=== PATIENT | male | born 1990 | race Two or more races ===

== ENCOUNTER 2022-03-25 14:57 | Emergency (ER) | payer MEDICAID, OTHER ==
[~2022-03-25] VITALS: Ht 172.7 cm; Wt 88.6 kg
[2022-03-25 15:37] VITALS: BP 115/60
[2022-03-25] MEDS ORDERED: KETOROLAC TROMETH 60MG/2ML VIAL IM ONE (16:30)
[2022-03-25] MEDS ORDERED: IBUP800T27 PO (17:28)
[2022-03-25] MEDS ORDERED: METH750T22 PO (17:28)
== END 2022-03-25 17:41 | disposition home or self-care (01) ==
LOC: ER 14:57
DX: S39.012A Strain of muscle, fascia and tendon of lower back, initial encounter (principal); R07.81 Pleurodynia; Z79.1 Long term (current) use of non-steroidal anti-inflammatories (NSAID); Z79.899 Other long term (current) drug therapy; X58.XXXA Exposure to other specified factors, initial encounter; Y93.89 Activity, other specified; Y92.89 Other specified places as the place of occurrence of the external cause; Y99.8 Other external cause status
CPT/HCPCS: 71101; 96372; 99283; J1885

== ENCOUNTER 2022-04-20 01:21 | Emergency (ER) | payer MEDICAID ==
[~2022-04-20] VITALS: Ht 170.2 cm; Wt 190.0 kg
[~2022-04-20 01:21] MED LIST: IBUP800T27 PO; METH750T22 PO
[2022-04-20] MEDS ORDERED: IBUP800T27 PO (02:21)
[2022-04-20] MEDS ORDERED: AMOX-277 PO (02:21)
[2022-04-20] MEDS ORDERED: KETOROLAC TROMETH 60MG/2ML VIAL IM ONE (02:30)
[2022-04-20] MEDS ORDERED: BENZOCAINE (DENTAL) 20 % SPRAY 60ML MT ONE (02:30)
[2022-04-20 02:42] VITALS: BP 140/87
== END 2022-04-20 03:33 | disposition home or self-care (01) ==
LOC: ER 01:21
DX: K04.7 Periapical abscess without sinus (principal); Z87.442 Personal history of urinary calculi; Z88.1 Allergy status to other antibiotic agents
CPT/HCPCS: 96372; 99283; J1885

== ENCOUNTER 2022-12-21 08:41 | Emergency (ER) | payer MEDICAID ==
[~2022-12-21] VITALS: Ht 170.2 cm; Wt 86.7 kg
[~2022-12-21 08:41] MED LIST changes: +AMOX875T4 PO; +IBUP-1456 PO; -IBUP800T27 PO; +METH-1182 PO; -METH750T22 PO
[2022-12-21 09:18] VITALS: BP 120/73
[2022-12-21] MEDS ORDERED: IBUP1TAB5 PO (09:57)
== END 2022-12-21 10:07 | disposition home or self-care (01) ==
LOC: ER 08:41
DX: S39.012A Strain of muscle, fascia and tendon of lower back, initial encounter (principal); F12.10 Cannabis abuse, uncomplicated; Z87.442 Personal history of urinary calculi; X58.XXXA Exposure to other specified factors, initial encounter; Y93.89 Activity, other specified; Y92.89 Other specified places as the place of occurrence of the external cause; Y99.8 Other external cause status
CPT/HCPCS: 72100

== ENCOUNTER 2023-03-31 11:49 | Emergency (ER) | payer MEDICAID ==
[~2023-03-31] VITALS: Ht 170.2 cm; Wt 86.3 kg
[~2023-03-31 11:49] MED LIST changes: +IBUP1TAB5 PO
[2023-03-31 12:20] VITALS: BP 111/58; PULSE 62; RESP 18; O2SAT 97
== END 2023-03-31 13:53 | disposition left against medical advice (07) ==
LOC: ER 11:49
DX: R09.81 Nasal congestion (principal); J02.9 Acute pharyngitis, unspecified; Z53.21 Procedure and treatment not carried out due to patient leaving prior to being seen by health care provider